=== PATIENT | female | born 1980 | race Caucasian/White ===

== ENCOUNTER 2019-02-11 13:50 | Inpatient (IN) | payer OTHER ==
[2019-02-11 14:54] VITALS: BMI 30.2
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
[2019-02-11] MEDS ORDERED: METHOCARBAMOL 500 MG TABLET PO PRN (15:51)
[2019-02-11] MEDS ORDERED: MAGNESIUM HYDROX 2400MG/30ML ORAL SUSPENSION 30 ML CUP PO PRN (15:51)
[2019-02-11] MEDS ORDERED: chlordiazePOXIDE HCL 10 MG CAPSULE PO PRN (15:51)
[2019-02-11] MEDS ORDERED: MENTHOL/PHENOL 1 EACH UD MM PRN (15:51)
[2019-02-11] MEDS ORDERED: MAGNESIUM CITRATE 300 ML BOTTLE PO PRN (15:51)
[2019-02-11] MEDS ORDERED: ACETAMINOPHEN 325 MG TABLET (FP) PO PRN ×2 (15:51)
[2019-02-11] MEDS ORDERED: hydrOXYzine PAMOATE 25 MG CAPSULE (FP) PO PRN (15:51)
[2019-02-11] MEDS ORDERED: MAG HYDROX/AL HYDROX/SIMETH 30 ML UNIT-DOSE CUP PO PRN (15:51)
[2019-02-11] MEDS ORDERED: IBUPROFEN 400 MG TABLET (FP) PO PRN (15:51)
[2019-02-11] MEDS ORDERED: P-EPHED 60MG/TRIPROLIDI 2.5MG TABLET PO PRN (15:51)
[2019-02-11] MEDS ORDERED: ONDANSETRON *ODT* 4 MG TABLET SL PRN (15:51)
[2019-02-11] MEDS ORDERED: DICYCLOMINE HCL 10 MG CAPSULE PO PRN (15:51)
[2019-02-11] MEDS ORDERED: NICOTINE POLACRILEX 4 MG GUM BUC PRN (15:51)
[2019-02-11] MEDS ORDERED: BISMUTH SUBSALICYLATE 524 MG/30 ML UD PO PRN (15:51)
[2019-02-11] MEDS: THIAMINE HCL 100 MG TABLET (FP) PO SCH (22:05)
[2019-02-11] MEDS: chlordiazePOXIDE HCL 25 MG CAPSULE PO SCH (22:05)
[2019-02-12] MEDS: chlordiazePOXIDE HCL 25 MG CAPSULE PO SCH ×2 (06:15→13:10)
[2019-02-12 10:35] LABS: ALBUMIN 3.2 g/dl (3.4-5.0); ALK PHOS 61 U/L (45-117); ANION GAP 7 MMOL/L (8-16); BILIRUBIN,TOTAL 0.2 mg/dL (0.2-1); BLOOD UREA NITROGEN 20 mg/dL (7-18); CALCIUM 8.2 mg/dL (8.5-10.1); CHLORIDE 104 mmol/L (98-107); CO2 28 mmol/L (21-32); CREATININE 0.9 mg/dL (0.55-1.3); GLUCOSE,RANDOM 107 mg/dL (74-106); POTASSIUM 3.8 mmol/L (3.5-5.1); SGOT/AST 61 U/L (15-37); SGPT/ALT 23 U/L (13-61); SODIUM 140 mmol/L (136-145); TOT PROT 6.3 g/dl (6.4-8.2)
[2019-02-12 10:37] LABS: HEMATOCRIT 34.1 % (32.4-45.2); HEMOGLOBIN 11.4 GM/dL (10.7-15.3); MCH 30.3 pg (25.7-33.7); MCHC 33.5 g/dl (32.0-36.0); MEAN CELL VOLUME 90.6 fl (80-96); MEAN PLT VOLUME 7.7 fl (7.5-11.1); PLATELET COUNT 361 K/MM3 (134-434); RBC 3.76 M/mm3 (3.60-5.2); RDW 15.3 % (11.6-15.6); WHITE BLOOD COUNT 5.9 K/mm3 (4.0-10.0)
[2019-02-12] MEDS: NICOTINE 21 MG/24 HOURS TOPICAL PATCH TD SCH (10:42)
[2019-02-12] MEDS: PRENATAL VITAMINS W/ FOLIC ACID TABLET (FP) PO SCH (10:43)
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
--- NOTE | 2019-02-12 13:09 | EKG ---
Test Reason : Blood Pressure : / mmHG Vent. Rate : 087 BPM Atrial Rate : 087 BPM P-R Int : 116 ms QRS Dur : 084 ms QT Int : 408 ms P-R-T Axes : 055 064 041 degrees QTc Int : 490 ms NORMAL SINUS RHYTHM PROLONGED QT ABNORMAL ECG NO PREVIOUS ECGS AVAILABLE Confirmed by MD HEENA, ARYA ([id number]) on 02/12/2019 1:09:18 PM Referred By: Confirmed By:ARYA NAIK MD
--- NOTE | 2019-02-12 16:22 | PN ---
S CIWA - CIWA Score Nausea/Vomitin-No Nausea/No Vomiting Muscle Tremors: 3 Anxiety: 4-Mod. Anxious/Guarded Agitation: 2 Paroxysmal Sweats: 2 Orientation: 0-Oriented Tacttile Disturbances: 2-Mild Itch/Numbness/Burn Auditory Disturbances: 0-None Visual Disturbances: 2-Mild Sensitivity Headache: 0-None Present CIWA-Ar Total Score: 15 BHS Progress Note (SOAP) Subjective: Anxious, Sweating, Tremors, Fatigue. Objective: PATIENT A & O X 2 (UNCERTAIN ABOUT CURRENT DAY / DATE). PATIENT OBSERVED AMBULATING ON UNIT. IN NO ACUTE DISTRESS. 02/12/19 16:20 Vital Signs Temperature 96.5 F L 02/12/19 14:11 Pulse Rate 83 02/12/19 14:11 Respiratory Rate 18 02/12/19 14:11 Blood Pressure 102/65 02/12/19 14:11 O2 Sat by Pulse Oximetry (%) Laboratory Tests 02/12/19 02/12/19 02/12/19 07:50 07:50 07:50 WBC 5.9 RBC 3.76 Hgb 11.4 Hct 34.1 MCV 90.6 MCH 30.3 MCHC 33.5 RDW 15.3 Plt Count 361 MPV 7.7 Sodium 140 Potassium 3.8 Chloride 104 Carbon Dioxide 28 Anion Gap 7 L BUN 20 H Creatinine 0.9 Creat Clearance w eGFR 70.45 Random Glucose 107 H Calcium 8.2 L Total Bilirubin 0.2 AST 61 H ALT 23 Alkaline Phosphatase 61 Total Protein 6.3 L Albumin 3.2 L RPR Titer HIV 1&2 Antibody Screen Negative HIV P24 Antigen Negative 02/12/19 07:50 WBC RBC Hgb Hct MCV MCH MCHC RDW Plt Count MPV Sodium Potassium Chloride Carbon Dioxide Anion Gap BUN Creatinine Creat Clearance w eGFR Random Glucose Calcium Total Bilirubin AST ALT Alkaline Phosphatase Total Protein Albumin RPR Titer Nonreactive HIV 1&2 Antibody Screen HIV P24 Antigen LABS NOTED. Assessment: 02/12/19 16:21 WITHDRAWAL SYMPTOMS. Plan: CONTINUE DETOX. INCREASE DAILY PO FLUID INTAKE.
[2019-02-12] MEDS: THIAMINE HCL 100 MG TABLET (FP) PO SCH (22:28)
[2019-02-12] MEDS: chlordiazePOXIDE 5 MG CAPSULE PO SCH (22:28)
[2019-02-12] MEDS: risperiDONE 0.5 MG TABLET (FP) PO SCH (22:29)
[2019-02-12] MEDS: MELATONIN 5 MG TABLETS PO PRN (22:30)
[2019-02-13] MEDS: chlordiazePOXIDE 5 MG CAPSULE PO SCH ×2 (05:53→13:56)
[2019-02-13] MEDS: NICOTINE 21 MG/24 HOURS TOPICAL PATCH TD SCH (10:27)
[2019-02-13] MEDS: PRENATAL VITAMINS W/ FOLIC ACID TABLET (FP) PO SCH (10:27)
[2019-02-13] MEDS: risperiDONE 0.5 MG TABLET (FP) PO SCH ×2 (10:27→22:30)
--- NOTE | 2019-02-13 11:48 | PN ---
S CIWA - CIWA Score Nausea/Vomitin-No Nausea/No Vomiting Muscle Tremors: 2 Anxiety: 2 Agitation: 2 Paroxysmal Sweats: 1-Minimal Palms Moist Orientation: 2-Disoriented Date<2 days Tacttile Disturbances: 0-None Auditory Disturbances: 0-None Visual Disturbances: 0-None Headache: 1-Very Mild CIWA-Ar Total Score: 10 S Progress Note (SOAP) Subjective: feeling better less tremor mild sweating sleep better at night Objective: 02/13/19 11:49 Vital Signs Temperature 97.3 F L 02/13/19 09:59 Pulse Rate 96 H 02/13/19 09:59 Respiratory Rate 18 02/13/19 09:59 Blood Pressure 105/69 02/13/19 09:59 O2 Sat by Pulse Oximetry (%) Laboratory Last Values WBC 5.9 K/mm3 (4.0-10.0) 02/12/19 07:50 RBC 3.76 M/mm3 (3.60-5.2) 02/12/19 07:50 Hgb 11.4 GM/dL (10.7-15.3) 02/12/19 07:50 Hct 34.1 % (32.4-45.2) 02/12/19 07:50 MCV 90.6 fl (80-96) 02/12/19 07:50 MCH 30.3 pg (25.7-33.7) 02/12/19 07:50 MCHC 33.5 g/dl (32.0-36.0) 02/12/19 07:50 RDW 15.3 % (11.6-15.6) 02/12/19 07:50 Plt Count 361 K/MM3 (134-434) 02/12/19 07:50 MPV 7.7 fl (7.5-11.1) 02/12/19 07:50 Sodium 140 mmol/L (136-145) 02/12/19 07:50 Potassium 3.8 mmol/L (3.5-5.1) 02/12/19 07:50 Chloride 104 mmol/L (98-107) 02/12/19 07:50 Carbon Dioxide 28 mmol/L (21-32) 02/12/19 07:50 Anion Gap 7 MMOL/L (8-16) L 02/12/19 07:50 BUN 20 mg/dL (7-18) H 02/12/19 07:50 Creatinine 0.9 mg/dL (0.55-1.3) 02/12/19 07:50 Creat Clearance w eGFR 70.45 (>60) 02/12/19 07:50 Random Glucose 107 mg/dL (74-106) H 02/12/19 07:50 Calcium 8.2 mg/dL (8.5-10.1) L 02/12/19 07:50 Total Bilirubin 0.2 mg/dL (0.2-1) 02/12/19 07:50 AST 61 U/L (15-37) H 02/12/19 07:50 ALT 23 U/L (13-61) 02/12/19 07:50 Alkaline Phosphatase 61 U/L (45-117) 02/12/19 07:50 Total Protein 6.3 g/dl (6.4-8.2) L 02/12/19 07:50 Albumin 3.2 g/dl (3.4-5.0) L 02/12/19 07:50 RPR Titer Nonreactive (NONREACTIVE) 02/12/19 07:50 HIV 1&2 Antibody Screen Negative 02/12/19 07:50 HIV P24 Antigen Negative 02/12/19 07:50 lab noted Assessment: 02/13/19 11:49 mild withdrawal sx Plan: continue detox
[2019-02-13] MEDS ORDERED: chlordiazePOXIDE HCL 10 MG CAPSULE PO PRN (21:00)
[2019-02-13] MEDS: THIAMINE HCL 100 MG TABLET (FP) PO SCH (22:30)
[2019-02-13] MEDS: chlordiazePOXIDE HCL 10 MG CAPSULE PO SCH (22:30)
[2019-02-13] MEDS: MELATONIN 5 MG TABLETS PO PRN (22:31)
[2019-02-14] MEDS: chlordiazePOXIDE HCL 10 MG CAPSULE PO SCH ×2 (06:13→13:38)
[2019-02-14 09:14] VITALS: TEMP 97.7
[2019-02-14] MEDS: PRENATAL VITAMINS W/ FOLIC ACID TABLET (FP) PO SCH (10:37)
[2019-02-14] MEDS: NICOTINE 21 MG/24 HOURS TOPICAL PATCH TD SCH (10:37)
[2019-02-14] MEDS: risperiDONE 0.5 MG TABLET (FP) PO SCH (10:37)
[2019-02-14 13:14] VITALS: BP 123/84; PULSE 94
--- NOTE | 2019-02-14 14:38 | DS ---
[facility] Detox Discharge Summary Admission Date: 02/11/19 Discharge Date: 02/14/19 - History Present History: Alcohol Dependence Additional Comments: 38 years old female admitted on 02/11/19 for alcohol withdrawal stabilization completed detox regimen [facility] - Physical Exam Results Vital Signs: Vital Signs Temperature 97.7 F 02/14/19 13:14 Pulse Rate 94 H 02/14/19 13:14 Respiratory Rate 18 02/14/19 13:14 Blood Pressure 123/84 02/14/19 13:14 O2 Sat by Pulse Oximetry (%) Pertinent Admission Physical Exam Findings: alcohol withdrawal sx Laboratory Last Values WBC 5.9 K/mm3 (4.0-10.0) 02/12/19 07:50 RBC 3.76 M/mm3 (3.60-5.2) 02/12/19 07:50 Hgb 11.4 GM/dL (10.7-15.3) 02/12/19 07:50 Hct 34.1 % (32.4-45.2) 02/12/19 07:50 MCV 90.6 fl (80-96) 02/12/19 07:50 MCH 30.3 pg (25.7-33.7) 02/12/19 07:50 MCHC 33.5 g/dl (32.0-36.0) 02/12/19 07:50 RDW 15.3 % (11.6-15.6) 02/12/19 07:50 Plt Count 361 K/MM3 (134-434) 02/12/19 07:50 MPV 7.7 fl (7.5-11.1) 02/12/19 07:50 Sodium 140 mmol/L (136-145) 02/12/19 07:50 Potassium 3.8 mmol/L (3.5-5.1) 02/12/19 07:50 Chloride 104 mmol/L (98-107) 02/12/19 07:50 Carbon Dioxide 28 mmol/L (21-32) 02/12/19 07:50 Anion Gap 7 MMOL/L (8-16) L 02/12/19 07:50 BUN 20 mg/dL (7-18) H 02/12/19 07:50 Creatinine 0.9 mg/dL (0.55-1.3) 02/12/19 07:50 Creat Clearance w eGFR 70.45 (>60) 02/12/19 07:50 Random Glucose 107 mg/dL (74-106) H 02/12/19 07:50 Calcium 8.2 mg/dL (8.5-10.1) L 02/12/19 07:50 Total Bilirubin 0.2 mg/dL (0.2-1) 02/12/19 07:50 AST 61 U/L (15-37) H 02/12/19 07:50 ALT 23 U/L (13-61) 02/12/19 07:50 Alkaline Phosphatase 61 U/L (45-117) 02/12/19 07:50 Total Protein 6.3 g/dl (6.4-8.2) L 02/12/19 07:50 Albumin 3.2 g/dl (3.4-5.0) L 02/12/19 07:50 RPR Titer Nonreactive (NONREACTIVE) 02/12/19 07:50 HIV 1&2 Antibody Screen Negative 02/12/19 07:50 HIV P24 Antigen Negative 02/12/19 07:50 lab noted - Treatment Hospital Course: Detox Protocol Followed, Detoxed Safely, Responded well, Discharged Condition Good, Rehab Referral Accepted Patient has Accepted a [facility] Referral to: [facility] - Medication Discharge Medications: Ambulatory Orders NK [No Known Home Medication] 02/11/19 - Diagnosis (1) Alcohol dependence with uncomplicated withdrawal Current Visit: Yes Status: Acute (2) Nicotine dependence Current Visit: Yes Status: Acute Qualifiers: Nicotine product type: cigarettes Substance use status: in withdrawal Qualified Code(s): F17.213 - Nicotine dependence, cigarettes, with withdrawal (3) Substance induced mood disorder Current Visit: Yes Status: Chronic - AMA Did Patient Leave Against Medical Advice: No
== END 2019-02-14 14:33 | disposition other institution (70) | DRG 774 ==
LOC: YASAS 13:50 → Y3N 17:34
PROVIDERS: ADMIT Surgery; ATTEND Surgery
PROC: HZ2ZZZZ Detoxification Services for Substance Abuse Treatment (ICD-10-PCS; principal; 2019-02-11)
DX: F10.230 Alcohol dependence with withdrawal, uncomplicated (principal); F14.20 Cocaine dependence, uncomplicated; F17.213 Nicotine dependence, cigarettes, with withdrawal; F19.24 Other psychoactive substance dependence with psychoactive substance-induced mood disorder; F22 Delusional disorders; F31.9 Bipolar disorder, unspecified; Z91.19 Patient's noncompliance with other medical treatment and regimen; Z59.0 Homelessness
CPT/HCPCS: 36415; 80053; 85027; 86593; 87389; 93005; 93010

== ENCOUNTER 2019-02-14 14:49 | Inpatient (IN) | payer OTHER ==
--- NOTE | 2019-02-14 14:41 | HP ---
[facility] Re[facility] Assess/Revision - Admission History Admitted to Rehab from: [facility] Date of Admission to Rehab: 02/14/19 - Findings Detox History & Physical reviewed: Yes Concur with findings: Yes Comments/Additional Findings: transferred from detox to rehab admission as per protocol Inpatient Rehab Admission - Rehab Decision to Admit Inpatient rehab admission?: Yes - Initial Determination Are CD services needed?: Yes Free of communicable disease: Yes Not in need of hospitalization: Yes - Rehab Admission Criteria Previous failed treatment: Yes Poor recovery environment: Yes Comorbidities: Yes Lacks judgement: No Patient is meeting Inpatient Rehab admission criteria:: Yes
[~2019-02-14 14:49] MED LIST: ACETAMINOPHEN 325 MG TABLET (FP) PO PRN; IBUPROFEN 400 MG TABLET (FP) PO PRN; LOPERAMIDE HCL 2 MG CAPSULE PO PRN; MAG HYDROX/AL HYDROX/SIMETH 30 ML UNIT-DOSE CUP PO PRN; MAGNESIUM CITRATE 300 ML BOTTLE PO PRN; MAGNESIUM HYDROX 2400MG/30ML ORAL SUSPENSION 30 ML CUP PO PRN; MENTHOL/PHENOL 1 EACH UD MM PRN; NICOTINE 14 MG/24 HOURS TOPICAL PATCH TD PRN; P-EPHED 60MG/TRIPROLIDI 2.5MG TABLET PO PRN; guaiFENesin 200 MG/10 ML 10 ML UNIT-DOSE CUPS PO PRN
[2019-02-14 15:14] VITALS: BMI 31.9
[2019-02-14] MEDS: NICOTINE POLACRILEX 2 MG GUM BC PRN ×2 (19:03→22:01)
[2019-02-14] MEDS ORDERED: MELATONIN 5 MG TABLETS PO PRN (22:00)
[2019-02-14] MEDS: risperiDONE 0.5 MG TABLET (FP) PO SCH (22:01)
[2019-02-14] MEDS: THIAMINE HCL 100 MG TABLET (FP) PO SCH (22:01)
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
[2019-02-15] MEDS: NICOTINE POLACRILEX 2 MG GUM BC PRN ×2 (09:47→14:52)
[2019-02-15] MEDS: PRENATAL VITAMINS W/ FOLIC ACID TABLET (FP) PO SCH (09:47)
[2019-02-15] MEDS: risperiDONE 0.5 MG TABLET (FP) PO SCH ×2 (09:47→21:47)
--- NOTE | 2019-02-15 11:52 | PN ---
[facility] Progress Note Note: Patient requesting change in repiradal. Psych aware of patient request, discussed in AM meeting.
[2019-02-15] MEDS: hydrOXYzine PAMOATE 50 MG CAPSULE (FP) PO PRN ×2 (16:59→21:47)
[2019-02-15] MEDS: THIAMINE HCL 100 MG TABLET (FP) PO SCH (21:45)
[2019-02-16 06:54] VITALS: BP 122/75; PULSE 83; TEMP 97.4
[2019-02-16] MEDS: hydrOXYzine PAMOATE 50 MG CAPSULE (FP) PO PRN (08:37)
[2019-02-16] MEDS: risperiDONE 0.5 MG TABLET (FP) PO SCH (09:16)
[2019-02-16] MEDS: PRENATAL VITAMINS W/ FOLIC ACID TABLET (FP) PO SCH (09:16)
[2019-02-16] MEDS ORDERED: PT OWN MED DRAWER 7, Y5N ONE (09:17)
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
--- NOTE | 2019-02-16 09:42 | PN ---
[facility] Progress Note Note: Patient is signing out against medical advice today. Scripts for 30 days supply of Risperdal 0.5 mg po BID is electronically transmitted to [facility] at [address] [place], [place] [id number]
[2019-02-16] MEDS ORDERED: predniSONE 5 MG TABLET (UD) PO SCH (10:00)
== END 2019-02-16 09:50 | disposition left against medical advice (07) | DRG 770 ==
LOC: YASAS 14:49 → Y3W 14:50
PROVIDERS: ADMIT Neuromusculoskeletal Medicine & OMM; ATTEND Neuromusculoskeletal Medicine & OMM
PROC: HZ42ZZZ Group Counseling for Substance Abuse Treatment, Cognitive-Behavioral (ICD-10-PCS; principal; 2019-02-14)
DX: F10.20 Alcohol dependence, uncomplicated (principal); F14.20 Cocaine dependence, uncomplicated; F11.10 Opioid abuse, uncomplicated; F17.210 Nicotine dependence, cigarettes, uncomplicated; F19.24 Other psychoactive substance dependence with psychoactive substance-induced mood disorder; F19.282 Other psychoactive substance dependence with psychoactive substance-induced sleep disorder; F22 Delusional disorders; Z86.59 Personal history of other mental and behavioral disorders; Z59.0 Homelessness

== ENCOUNTER 2019-03-27 10:04 | Inpatient (IN) | payer OTHER ==
[2019-03-27 11:56] VITALS: BMI 31.6
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
[2019-03-27] MEDS ORDERED: MAGNESIUM HYDROX 2400MG/30ML ORAL SUSPENSION 30 ML CUP PO PRN (15:08)
[2019-03-27] MEDS ORDERED: chlordiazePOXIDE HCL 25 MG CAPSULE PO PRN (15:08)
[2019-03-27] MEDS ORDERED: METHOCARBAMOL 500 MG TABLET PO PRN (15:08)
[2019-03-27] MEDS ORDERED: MENTHOL/PHENOL 1 EACH UD MM PRN (15:08)
[2019-03-27] MEDS ORDERED: IBUPROFEN 400 MG TABLET (FP) PO PRN (15:08)
[2019-03-27] MEDS ORDERED: BISMUTH SUBSALICYLATE 524 MG/30 ML UD PO PRN (15:08)
[2019-03-27] MEDS ORDERED: MAG HYDROX/AL HYDROX/SIMETH 30 ML UNIT-DOSE CUP PO PRN (15:08)
[2019-03-27] MEDS ORDERED: ACETAMINOPHEN 325 MG TABLET (FP) PO PRN ×2 (15:08)
[2019-03-27] MEDS ORDERED: MAGNESIUM CITRATE 300 ML BOTTLE PO PRN (15:08)
[2019-03-27 17:11] LABS: PH,URINE 5.5 (5.0-8.0); URINE APPEARANCE TURBID; URINE BILIRUBIN NEGATIVE (NEGATIVE); URINE COLOR YELLOW; URINE GLUCOSE (UA) NEGATIVE (NEGATIVE); URINE KETONE 1+ (NEGATIVE); URINE LEUK ESTERASE NEGATIVE (NEGATIVE); URINE NITRITE NEGATIVE (NEGATIVE); URINE PROTEIN NEGATIVE (NEGATIVE); URINE UROBILINOGEN 0.2 mg/dL (0.2-1.0)
[2019-03-27] MEDS: chlordiazePOXIDE HCL 25 MG CAPSULE PO SCH ×2 (17:57→23:43)
[2019-03-27] MEDS: THIAMINE HCL 100 MG TABLET (FP) PO SCH (23:43)
[2019-03-27] MEDS: BACITRACIN 0.9 GM PACKET TP SCH (23:43)
[2019-03-28] MEDS: chlordiazePOXIDE HCL 25 MG CAPSULE PO SCH ×4 (05:39→22:25)
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
[2019-03-28 10:22] LABS: HEMATOCRIT 36.3 % (32.4-45.2); HEMOGLOBIN 12.4 GM/dL (10.7-15.3); MCH 30.9 pg (25.7-33.7); MCHC 34.1 g/dl (32.0-36.0); MEAN CELL VOLUME 90.8 fl (80-96); MEAN PLT VOLUME 8.1 fl (7.5-11.1); PLATELET COUNT 288 K/MM3 (134-434); RDW 15.2 % (11.6-15.6); WHITE BLOOD COUNT 5.2 K/mm3 (4.0-10.0)
[2019-03-28 10:23] LABS: ALK PHOS 60 U/L (45-117); ANION GAP 3 MMOL/L (8-16); BILIRUBIN,TOTAL 0.2 mg/dL (0.2-1); BLOOD UREA NITROGEN 23 mg/dL (7-18); CALCIUM 8.4 mg/dL (8.5-10.1); CHLORIDE 108 mmol/L (98-107); CO2 28 mmol/L (21-32); CREATININE 0.8 mg/dL (0.55-1.3); GLUCOSE,RANDOM 98 mg/dL (74-106); POTASSIUM 4.3 mmol/L (3.5-5.1); SGOT/AST 13 U/L (15-37); SGPT/ALT 20 U/L (13-61); SODIUM 138 mmol/L (136-145); TOT PROT 6.2 g/dl (6.4-8.2)
[2019-03-28] MEDS: NICOTINE 21 MG/24 HOURS TOPICAL PATCH TD SCH (10:55)
[2019-03-28] MEDS: PRENATAL VITAMINS W/ FOLIC ACID TABLET (FP) PO SCH (10:55)
[2019-03-28] MEDS: hydrOXYzine PAMOATE 25 MG CAPSULE (FP) PO PRN ×2 (10:56→22:27)
[2019-03-28] MEDS: NICOTINE POLACRILEX 2 MG GUM BC PRN ×2 (10:58→22:35)
[2019-03-28] MEDS: BACITRACIN 0.9 GM PACKET TP SCH ×2 (11:06→22:25)
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
[2019-03-28] MEDS: MELATONIN 5 MG TABLETS PO PRN (22:25)
[2019-03-28] MEDS: THIAMINE HCL 100 MG TABLET (FP) PO SCH (22:25)
[2019-03-29] MEDS: chlordiazePOXIDE HCL 25 MG CAPSULE PO SCH ×2 (05:34→10:37)
[2019-03-29] MEDS: hydrOXYzine PAMOATE 25 MG CAPSULE (FP) PO PRN ×3 (05:38→22:22)
[2019-03-29] MEDS ORDERED: LOPERAMIDE HCL 2 MG CAPSULE PO PRN (10:21)
[2019-03-29] MEDS: NICOTINE 21 MG/24 HOURS TOPICAL PATCH TD SCH (10:33)
[2019-03-29] MEDS: PRENATAL VITAMINS W/ FOLIC ACID TABLET (FP) PO SCH (10:33)
[2019-03-29] MEDS: BACITRACIN 0.9 GM PACKET TP SCH ×2 (10:36→22:20)
--- NOTE | 2019-03-29 11:36 | PN ---
[facility] CIWA - CIWA Score Nausea/Vomitin-No Nausea/No Vomiting Muscle Tremors: 3 Anxiety: 3 Agitation: 3 Paroxysmal Sweats: 2 Orientation: 0-Oriented Tacttile Disturbances: 0-None Auditory Disturbances: 0-None Visual Disturbances: 0-None Headache: 0-None Present CIWA-Ar Total Score: 11 S Progress Note (SOAP) Subjective: anxiety interrupted sleep body aches diarrhea Objective: 03/29/19 11:35 Vital Signs Temperature 97.6 F 03/29/19 10:27 Pulse Rate 76 03/29/19 10:27 Respiratory Rate 20 03/29/19 10:27 Blood Pressure 110/52 L 03/29/19 10:27 O2 Sat by Pulse Oximetry (%) Laboratory Tests 03/27/19 03/28/19 03/28/19 15:57 07:00 07:00 WBC 5.2 RBC 4.00 Hgb 12.4 Hct 36.3 MCV 90.8 MCH 30.9 MCHC 34.1 RDW 15.2 Plt Count 288 D MPV 8.1 Sodium 138 Potassium 4.3 Chloride 108 H Carbon Dioxide 28 Anion Gap 3 L BUN 23 H Creatinine 0.8 Creat Clearance w eGFR 80.71 Random Glucose 98 Calcium 8.4 L Total Bilirubin 0.2 AST 13 L ALT 20 Alkaline Phosphatase 60 Total Protein 6.2 L Albumin 3.0 L Urine Color Yellow Urine Appearance Turbid Urine pH 5.5 Ur Specific [place] 1.033 Urine Protein Negative Urine Glucose (UA) Negative Urine Ketones 1+ H Urine Blood Negative Urine Nitrite Negative Urine Bilirubin Negative Urine Urobilinogen 0.2 Ur Leukocyte Esterase Negative RPR Titer 03/28/19 07:00 WBC RBC Hgb Hct MCV MCH MCHC RDW Plt Count MPV Sodium Potassium Chloride Carbon Dioxide Anion Gap BUN Creatinine Creat Clearance w eGFR Random Glucose Calcium Total Bilirubin AST ALT Alkaline Phosphatase Total Protein Albumin Urine Color Urine Appearance Urine pH Ur Specific [place] Urine Protein Urine Glucose (UA) Urine Ketones Urine Blood Urine Nitrite Urine Bilirubin Urine Urobilinogen Ur Leukocyte Esterase RPR Titer Nonreactive aaox3 ambulating no acute distress Assessment: 03/29/19 11:35 withdrawal sx Plan: continue detox increase fluids imodium prn
[2019-03-29] MEDS: risperiDONE 1 MG TABLET (FP) PO SCH ×2 (14:22→22:20)
[2019-03-29] MEDS ORDERED: chlordiazePOXIDE HCL 10 MG CAPSULE PO PRN (17:00)
[2019-03-29] MEDS: chlordiazePOXIDE HCL 10 MG CAPSULE PO SCH ×2 (17:02→22:20)
[2019-03-29] MEDS: MELATONIN 5 MG TABLETS PO PRN (22:20)
[2019-03-29] MEDS: THIAMINE HCL 100 MG TABLET (FP) PO SCH (22:20)
[2019-03-30] MEDS: chlordiazePOXIDE HCL 10 MG CAPSULE PO SCH ×2 (07:20→10:02)
[2019-03-30] MEDS: hydrOXYzine PAMOATE 25 MG CAPSULE (FP) PO PRN ×2 (07:22→17:47)
[2019-03-30] MEDS: risperiDONE 1 MG TABLET (FP) PO SCH (10:02)
[2019-03-30] MEDS: BACITRACIN 0.9 GM PACKET TP SCH (10:02)
[2019-03-30] MEDS: PRENATAL VITAMINS W/ FOLIC ACID TABLET (FP) PO SCH (10:02)
[2019-03-30] MEDS: NICOTINE 21 MG/24 HOURS TOPICAL PATCH TD SCH (10:04)
--- NOTE | 2019-03-30 11:32 | PN ---
S CIWA - CIWA Score Nausea/Vomitin-No Nausea/No Vomiting Muscle Tremors: 3 Anxiety: 2 Agitation: 2 Paroxysmal Sweats: 2 Orientation: 0-Oriented Tacttile Disturbances: 0-None Auditory Disturbances: 0-None Visual Disturbances: 0-None Headache: 0-None Present CIWA-Ar Total Score: 9 BHS Progress Note (SOAP) Subjective: feeling better sweats interrupted sleep Objective: 03/30/19 11:32 Vital Signs Temperature 97.7 F 03/30/19 09:11 Pulse Rate 97 H 03/30/19 09:11 Respiratory Rate 16 03/30/19 09:11 Blood Pressure 105/60 03/30/19 09:11 O2 Sat by Pulse Oximetry (%) aaox3 ambulating no acute distress Assessment: 03/30/19 11:32 withdrawal sx Plan: continue detox increase fluids
[2019-03-30 17:00] VITALS: BP 100/53; PULSE 111; TEMP 97.8
[2019-03-30] MEDS ORDERED: chlordiazePOXIDE HCL 10 MG CAPSULE PO SCH (17:00)
--- NOTE | 2019-03-30 17:57 | PN ---
[facility] Progress Note Note: Psychiatric nurse practitioner note: Psychiatric consultation ordered for patient requesting risperdal dose. Dr. Herron's note read and appreciated. Risperdal 1mg BID ordered by Dr. Herron on 03/30/19. Patient informed that her risperdal dose is ordered. Psychiatric consultation complete.
--- NOTE | 2019-03-30 19:16 | DS ---
[facility] Detox Discharge Summary Admission Date: 03/27/19 Discharge Date: 03/30/19 - History Present History: Alcohol Dependence, Cannabis Dependence, Cocaine Dependence Pertinent Past History: pt leaving a day early of alcohol detox protocol- pt states she is going to [place] today and needs to leave. d/w pt relapse prevention- says that she will most likely use again. - Physical Exam Results Vital Signs: Vital Signs Temperature 97.8 F 03/30/19 16:59 Pulse Rate 111 H 03/30/19 16:59 Respiratory Rate 18 03/30/19 16:59 Blood Pressure 100/53 L 03/30/19 16:59 O2 Sat by Pulse Oximetry (%) - Treatment Hospital Course: Detox Protocol Followed, Detoxed Safely - Medication Discharge Medications: Ambulatory Orders Risperidone [Risperdal -] 1 mg PO BID 03/27/19 - AMA Did Patient Leave Against Medical Advice: No
== END 2019-03-30 19:24 | disposition home or self-care (01) | DRG 774 ==
LOC: YASAS 10:04 → Y6N 15:08
PROVIDERS: ADMIT Surgery; ATTEND Surgery
PROC: HZ2ZZZZ Detoxification Services for Substance Abuse Treatment (ICD-10-PCS; principal; 2019-03-27)
DX: F10.230 Alcohol dependence with withdrawal, uncomplicated (principal); F14.20 Cocaine dependence, uncomplicated; F12.20 Cannabis dependence, uncomplicated; F17.213 Nicotine dependence, cigarettes, with withdrawal; F19.24 Other psychoactive substance dependence with psychoactive substance-induced mood disorder; F19.282 Other psychoactive substance dependence with psychoactive substance-induced sleep disorder; F31.9 Bipolar disorder, unspecified; M21.932 Unspecified acquired deformity of left forearm; Z98.890 Other specified postprocedural states; Z86.59 Personal history of other mental and behavioral disorders; Z59.0 Homelessness
CPT/HCPCS: 36415; 80053; 81003; 85027; 86593; J2794

== ENCOUNTER 2019-05-03 09:59 | Inpatient (IN) | payer OTHER ==
[2019-05-03 10:29] VITALS: BMI 33.3
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
[2019-05-03] MEDS ORDERED: MAGNESIUM CITRATE 300 ML BOTTLE PO PRN (13:48)
[2019-05-03] MEDS ORDERED: MAG HYDROX/AL HYDROX/SIMETH 30 ML UNIT-DOSE CUP PO PRN (13:48)
[2019-05-03] MEDS ORDERED: ACETAMINOPHEN 325 MG TABLET (FP) PO PRN ×2 (13:48)
[2019-05-03] MEDS ORDERED: NICOTINE POLACRILEX 4 MG GUM BUC PRN (13:48)
[2019-05-03] MEDS ORDERED: ONDANSETRON *ODT* 4 MG TABLET SL PRN (13:48)
[2019-05-03] MEDS ORDERED: METHOCARBAMOL 500 MG TABLET PO PRN (13:48)
[2019-05-03] MEDS ORDERED: IBUPROFEN 400 MG TABLET (FP) PO PRN (13:48)
[2019-05-03] MEDS ORDERED: MENTHOL/PHENOL 1 EACH UD MM PRN (13:48)
[2019-05-03] MEDS ORDERED: BISMUTH SUBSALICYLATE 262 MG/15 ML BTL PO PRN (13:48)
[2019-05-03] MEDS ORDERED: MAGNESIUM HYDROX 2400MG/30ML ORAL SUSPENSION 30 ML CUP PO PRN (13:48)
[2019-05-03] MEDS ORDERED: chlordiazePOXIDE HCL 25 MG CAPSULE PO PRN (13:48)
[2019-05-03] MEDS ORDERED: chlordiazePOXIDE HCL 25 MG CAPSULE PO ONE (14:00)
[2019-05-03] MEDS: chlordiazePOXIDE HCL 25 MG CAPSULE PO SCH ×2 (17:23→22:11)
[2019-05-03 18:25] LABS: HEMATOCRIT 37.9 % (32.4-45.2); HEMOGLOBIN 12.4 GM/dL (10.7-15.3); MCH 29.6 pg (25.7-33.7); MCHC 32.6 g/dl (32.0-36.0); MEAN CELL VOLUME 90.8 fl (80-96); MEAN PLT VOLUME 7.9 fl (7.5-11.1); PLATELET COUNT 385 K/MM3 (134-434); RBC 4.18 M/mm3 (3.60-5.2); RDW 15.8 % (11.6-15.6); WHITE BLOOD COUNT 6.4 K/mm3 (4.0-10.0)
[2019-05-03 19:11] LABS: ALBUMIN 3.6 g/dl (3.4-5.0); BILIRUBIN,TOTAL 0.5 mg/dL (0.2-1); CALCIUM 9.3 mg/dL (8.5-10.1); CREATININE 0.9 mg/dL (0.55-1.3)
[2019-05-03] MEDS: THIAMINE HCL 100 MG TABLET (FP) PO SCH (22:11)
[2019-05-03] MEDS: MELATONIN 5 MG TABLETS PO PRN (22:12)
[2019-05-03] MEDS: hydrOXYzine PAMOATE 25 MG CAPSULE (FP) PO PRN (22:13)
[2019-05-04] MEDS: chlordiazePOXIDE HCL 25 MG CAPSULE PO SCH ×3 (06:54→20:35)
--- NOTE | 2019-05-04 11:08 | PN ---
S CIWA - CIWA Score Nausea/Vomitin-No Nausea/No Vomiting Muscle Tremors: 3 Anxiety: 3 Agitation: 3 Paroxysmal Sweats: 3 Orientation: 0-Oriented Tacttile Disturbances: 0-None Auditory Disturbances: 0-None Visual Disturbances: 0-None Headache: 0-None Present CIWA-Ar Total Score: 12 BHS Progress Note (SOAP) Subjective: sweats shakes interrupted sleep tired body aches irritable Objective: 05/04/19 11:07 Vital Signs Temperature 98.1 F 05/04/19 09:37 Pulse Rate 76 05/04/19 09:37 Respiratory Rate 18 05/04/19 09:37 Blood Pressure 124/82 05/04/19 09:37 O2 Sat by Pulse Oximetry (%) Laboratory Tests 05/03/19 05/03/19 05/03/19 11:46 13:15 13:15 WBC 6.4 RBC 4.18 Hgb 12.4 Hct 37.9 MCV 90.8 MCH 29.6 MCHC 32.6 RDW 15.8 H Plt Count 385 D MPV 7.9 Sodium 138 Potassium 4.0 Chloride 106 Carbon Dioxide 28 Anion Gap 5 L BUN 15 Creatinine 0.9 Est GFR (CKD-EPI)AfAm 94.67 Est GFR (CKD-EPI)NonAf 81.68 Random Glucose 104 Calcium 9.3 Total Bilirubin 0.5 AST 17 ALT 22 Alkaline Phosphatase 73 Total Protein 7.0 Albumin 3.6 POC Urine HCG, Qual Negative RPR Titer 05/03/19 13:15 WBC RBC Hgb Hct MCV MCH MCHC RDW Plt Count MPV Sodium Potassium Chloride Carbon Dioxide Anion Gap BUN Creatinine Est GFR (CKD-EPI)AfAm Est GFR (CKD-EPI)NonAf Random Glucose Calcium Total Bilirubin AST ALT Alkaline Phosphatase Total Protein Albumin POC Urine HCG, Qual RPR Titer Nonreactive labs noted aaox3 ambulating no acute distress Assessment: 05/04/19 11:08 withdrawal sx Plan: continue detox increase fluids pending labs
[2019-05-04] MEDS: PRENATAL VITAMINS W/ FOLIC ACID TABLET (FP) PO SCH (11:15)
[2019-05-04] MEDS: NICOTINE 21 MG/24 HOURS TOPICAL PATCH TD SCH (11:15)
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
[2019-05-04] MEDS: risperiDONE 1 MG TABLET (FP) PO SCH (14:23)
[2019-05-05] MEDS: risperiDONE 1 MG TABLET (FP) PO SCH ×3 (00:17→22:33)
[2019-05-05] MEDS: THIAMINE HCL 100 MG TABLET (FP) PO SCH ×2 (00:17→22:33)
[2019-05-05] MEDS: chlordiazePOXIDE HCL 25 MG CAPSULE PO SCH ×3 (00:17→10:48)
[2019-05-05] MEDS: NICOTINE 21 MG/24 HOURS TOPICAL PATCH TD SCH (10:47)
[2019-05-05] MEDS: PRENATAL VITAMINS W/ FOLIC ACID TABLET (FP) PO SCH (10:48)
[2019-05-05] MEDS: hydrOXYzine PAMOATE 25 MG CAPSULE (FP) PO PRN ×2 (10:50→17:51)
--- NOTE | 2019-05-05 11:44 | PN ---
[facility] CIWA - CIWA Score Nausea/Vomitin-No Nausea/No Vomiting Muscle Tremors: 3 Anxiety: 3 Agitation: 3 Paroxysmal Sweats: 2 Orientation: 0-Oriented Tacttile Disturbances: 0-None Auditory Disturbances: 0-None Visual Disturbances: 0-None Headache: 0-None Present CIWA-Ar Total Score: 11 S Progress Note (SOAP) Subjective: sweats shakes anxiety i want an HIV test. Objective: 05/05/19 11:43 Vital Signs Temperature 97.6 F 05/05/19 09:34 Pulse Rate 80 05/05/19 09:34 Respiratory Rate 18 05/05/19 09:34 Blood Pressure 109/66 05/05/19 09:34 O2 Sat by Pulse Oximetry (%) Laboratory Tests 05/03/19 05/03/19 05/03/19 11:46 13:15 13:15 WBC 6.4 RBC 4.18 Hgb 12.4 Hct 37.9 MCV 90.8 MCH 29.6 MCHC 32.6 RDW 15.8 H Plt Count 385 D MPV 7.9 Sodium 138 Potassium 4.0 Chloride 106 Carbon Dioxide 28 Anion Gap 5 L BUN 15 Creatinine 0.9 Est GFR (CKD-EPI)AfAm 94.67 Est GFR (CKD-EPI)NonAf 81.68 Random Glucose 104 Calcium 9.3 Total Bilirubin 0.5 AST 17 ALT 22 Alkaline Phosphatase 73 Total Protein 7.0 Albumin 3.6 POC Urine HCG, Qual Negative RPR Titer 05/03/19 13:15 WBC RBC Hgb Hct MCV MCH MCHC RDW Plt Count MPV Sodium Potassium Chloride Carbon Dioxide Anion Gap BUN Creatinine Est GFR (CKD-EPI)AfAm Est GFR (CKD-EPI)NonAf Random Glucose Calcium Total Bilirubin AST ALT Alkaline Phosphatase Total Protein Albumin POC Urine HCG, Qual RPR Titer Nonreactive labs noted aaox3 ambulating no acute distress 05/05/19 11:44 Assessment: 05/05/19 11:43 withdrawal sx Plan: continue detox increase fluids HIV test ordered as per pt request
[2019-05-05] MEDS: chlordiazePOXIDE HCL 10 MG CAPSULE PO SCH ×2 (17:51→22:33)
[2019-05-05] MEDS: MELATONIN 5 MG TABLETS PO PRN (22:33)
[2019-05-06] MEDS: chlordiazePOXIDE HCL 10 MG CAPSULE PO SCH ×2 (06:39→10:26)
[2019-05-06 09:31] VITALS: BP 123/80; PULSE 103; TEMP 97.8
[2019-05-06] MEDS: risperiDONE 1 MG TABLET (FP) PO SCH (10:26)
[2019-05-06] MEDS: NICOTINE 21 MG/24 HOURS TOPICAL PATCH TD SCH (10:26)
[2019-05-06] MEDS: PRENATAL VITAMINS W/ FOLIC ACID TABLET (FP) PO SCH (10:26)
[2019-05-06] MEDS: hydrOXYzine PAMOATE 25 MG CAPSULE (FP) PO PRN (10:28)
--- NOTE | 2019-05-06 11:20 | PN ---
BHS Progress Note Note: is feeling fine. no withdrawals noted. pt has an opportunity to go to [facility] inpatient rehab and will be p/u today for continued care.
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
[2019-05-06] MEDS ORDERED: chlordiazePOXIDE HCL 10 MG CAPSULE PO SCH (17:00)
== END 2019-05-06 11:58 | disposition home or self-care (01) | DRG 774 ==
LOC: YASAS 09:59 → Y6N 13:13
PROVIDERS: ADMIT Surgery; ATTEND Surgery
PROC: HZ2ZZZZ Detoxification Services for Substance Abuse Treatment (ICD-10-PCS; principal; 2019-05-03)
DX: F10.230 Alcohol dependence with withdrawal, uncomplicated (principal); F14.20 Cocaine dependence, uncomplicated; F17.210 Nicotine dependence, cigarettes, uncomplicated; F19.282 Other psychoactive substance dependence with psychoactive substance-induced sleep disorder; F19.24 Other psychoactive substance dependence with psychoactive substance-induced mood disorder; F31.9 Bipolar disorder, unspecified; K21.9 Gastro-esophageal reflux disease without esophagitis; M21.932 Unspecified acquired deformity of left forearm; Z87.828 Personal history of other (healed) physical injury and trauma; Z86.19 Personal history of other infectious and parasitic diseases; Z59.0 Homelessness
CPT/HCPCS: 36415; 80053; 81025; 85027; 86593; 87389; J2794

== ENCOUNTER 2020-06-12 12:14 | Inpatient (IN) | payer OTHER ==
[~2020-06-12 12:14] MED LIST changes: -ACETAMINOPHEN 325 MG TABLET (FP) PO PRN; -IBUPROFEN 400 MG TABLET (FP) PO PRN; -LOPERAMIDE HCL 2 MG CAPSULE PO PRN; -MAG HYDROX/AL HYDROX/SIMETH 30 ML UNIT-DOSE CUP PO PRN; -MAGNESIUM CITRATE 300 ML BOTTLE PO PRN; -MAGNESIUM HYDROX 2400MG/30ML ORAL SUSPENSION 30 ML CUP PO PRN; -MENTHOL/PHENOL 1 EACH UD MM PRN; -NICOTINE 14 MG/24 HOURS TOPICAL PATCH TD PRN; -P-EPHED 60MG/TRIPROLIDI 2.5MG TABLET PO PRN; +chlordiazePOXIDE HCL 25 MG CAPSULE PO SCH; -guaiFENesin 200 MG/10 ML 10 ML UNIT-DOSE CUPS PO PRN
--- NOTE | 2020-06-12 12:44 | BHS.RME ---
Substance Use & Tx History - Substance Use History Alcohol Substance amount: 4 beers and 1 pint vodka Frequency of use: Daily Substance route: Oral Date of Last Use: 06/12/20 Heroin Substance amount: 2 bags Frequency of use: Daily Substance route: Inhalation (ex: sniffing or snorting) Date of Last Use: 06/12/20 Cocaine-Crack Substance amount: $300-400 Frequency of use: Daily Substance route: Smoking Date of Last Use: 06/12/20 Marijuana/Hashish Substance amount: $10 Frequency of use: Daily Substance route: Smoking Date of Last Use: 06/12/20 Nicotine Substance amount: 1/2 pack Frequency of use: Daily Substance route: Smoking Date of Last Use: 06/12/20 Physical/Psych/Mental Status - Behavior General Behavior: Increased activity (restlessness, agitation) Eye Contact: Normal - Cooperativeness Cooperativeness: Cooperative - Thinking Thought Processes: Tight, Logical, Goal Directed - Physical Health Problems Is patient presently having any pain?: No Does patient presently have any injuries (include location): No Does patient currently have a fever: No Is patient : No CIWA Nausea/Vomitin-Mild Nausea/No Vomiting Muscle Tremors: 3 Anxiety: 2 Agitation: 2 Paroxysmal Sweats: 1-Minimal Palms Moist Orientation: 0-Oriented Tacttile Disturbances: 0-None Auditory Disturbances: 0-None Visual Disturbances: 0-None Headache: 2-Mild CIWA-Ar Total Score: 11
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
[2020-06-12] MEDS ORDERED: BISMUTH SUBSALICYLATE 524 MG/30 ML UD PO PRN (13:26)
[2020-06-12] MEDS ORDERED: chlordiazePOXIDE HCL 25 MG CAPSULE PO PRN (13:26)
[2020-06-12] MEDS ORDERED: NICOTINE POLACRILEX 2 MG GUM BUC PRN (13:26)
[2020-06-12] MEDS ORDERED: MAGNESIUM HYDROX 2400MG/30ML ORAL SUSPENSION 30 ML CUP PO PRN (13:26)
[2020-06-12] MEDS ORDERED: ACETAMINOPHEN 325 MG TABLET (FP) PO PRN ×2 (13:26)
[2020-06-12] MEDS ORDERED: MAGNESIUM CITRATE 300 ML BOTTLE PO PRN (13:26)
[2020-06-12] MEDS ORDERED: MENTHOL/PHENOL 1 EACH UD MM PRN (13:26)
[2020-06-12] MEDS ORDERED: METHOCARBAMOL 500 MG TABLET PO PRN (13:26)
[2020-06-12] MEDS ORDERED: IBUPROFEN 400 MG TABLET (FP) PO PRN (13:26)
[2020-06-12] MEDS ORDERED: ONDANSETRON *ODT* 4 MG TABLET SL ONE (13:26)
[2020-06-12] MEDS ORDERED: MAG HYDROX/AL HYDROX/SIMETH 30 ML UNIT-DOSE CUP PO PRN (13:26)
[2020-06-12 13:56] VITALS: BMI 34.6
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
[2020-06-12] MEDS: NICOTINE 7 MG/24 HOURS TOPICAL PATCH TD SCH (15:33)
[2020-06-12] MEDS: PRENATAL VITAMINS W/ FOLIC ACID TABLET (FP) PO SCH (15:37)
[2020-06-12] MEDS: hydrOXYzine PAMOATE 25 MG CAPSULE (FP) PO SCH ×3 (15:37→22:08)
[2020-06-12] MEDS ORDERED: hydrOXYzine PAMOATE 50 MG CAPSULE (FP) PO PRN (15:52)
[2020-06-12 16:49] LABS: HEMATOCRIT 37.4 % (32.4-45.2); HEMOGLOBIN 12.5 GM/dL (10.7-15.3); MCH 28.6 pg (25.7-33.7); MCHC 33.4 g/dl (32.0-36.0); MEAN CELL VOLUME 85.6 fl (80-96); MEAN PLT VOLUME 8.1 fl (7.5-11.1); PLATELET COUNT 464 K/MM3 (134-434); RBC 4.37 M/mm3 (3.60-5.2); RDW 17.6 % (11.6-15.6); WHITE BLOOD COUNT 10.5 K/mm3 (4.0-10.0)
[2020-06-12 17:03] LABS: BILIRUBIN,TOTAL 0.6 mg/dL (0.2-1); BLOOD UREA NITROGEN 9.6 mg/dL (7-18); CALCIUM 9.1 mg/dL (8.5-10.1); CREATININE 0.9 mg/dL (0.55-1.3); POTASSIUM 3.7 mmol/L (3.5-5.1); TOT PROT 7.8 g/dl (6.4-8.2)
[2020-06-12] MEDS: chlordiazePOXIDE HCL 25 MG CAPSULE PO SCH ×2 (17:54→22:08)
[2020-06-12] MEDS: MELATONIN 5 MG TABLETS PO SCH (22:08)
[2020-06-12] MEDS: THIAMINE HCL 100 MG TABLET (FP) PO SCH (22:08)
[2020-06-12] MEDS: risperiDONE 1 MG TABLET PO SCH (22:08)
[2020-06-13] MEDS: hydrOXYzine PAMOATE 25 MG CAPSULE (FP) PO SCH ×5 (06:19→22:15)
[2020-06-13] MEDS: chlordiazePOXIDE HCL 25 MG CAPSULE PO SCH ×4 (06:19→22:15)
[2020-06-13] MEDS: PRENATAL VITAMINS W/ FOLIC ACID TABLET (FP) PO SCH (10:25)
[2020-06-13] MEDS: NICOTINE 7 MG/24 HOURS TOPICAL PATCH TD SCH (10:25)
[2020-06-13] MEDS: FLUoxetine HCL 20 MG CAPSULE PO SCH (10:25)
[2020-06-13] MEDS: risperiDONE 1 MG TABLET PO SCH ×2 (10:25→22:15)
--- NOTE | 2020-06-13 14:21 | PN ---
S CIWA - CIWA Score Nausea/Vomitin-Mild Nausea/No Vomiting Muscle Tremors: 3 Anxiety: 2 Agitation: 2 Paroxysmal Sweats: No Perspiration Orientation: 0-Oriented Tacttile Disturbances: 1-Very Mild Itch/Numbness Auditory Disturbances: 0-None Visual Disturbances: 0-None Headache: 2-Mild CIWA-Ar Total Score: 11 S Progress Note (SOAP) Subjective: alert,irritable,anxious,interrupted sleep,pain in the body and back,tremor,[place]isa [place] Objective: 06/13/20 14:18 Vital Signs Temperature 96.6 F L 06/13/20 08:55 Pulse Rate 93 H 06/13/20 08:55 Respiratory Rate 19 06/13/20 08:55 Blood Pressure 113/70 06/13/20 08:55 O2 Sat by Pulse Oximetry (%) 95 06/13/20 08:55 Laboratory Last Values WBC 10.5 K/mm3 (4.0-10.0) H 06/12/20 13:25 RBC 4.37 M/mm3 (3.60-5.2) 06/12/20 13:25 Hgb 12.5 GM/dL (10.7-15.3) 06/12/20 13:25 Hct 37.4 % (32.4-45.2) D 06/12/20 13:25 MCV 85.6 fl (80-96) 06/12/20 13:25 MCH 28.6 pg (25.7-33.7) 06/12/20 13:25 MCHC 33.4 g/dl (32.0-36.0) 06/12/20 13:25 RDW 17.6 % (11.6-15.6) H 06/12/20 13:25 Plt Count 464 K/MM3 (134-434) H D 06/12/20 13:25 MPV 8.1 fl (7.5-11.1) 06/12/20 13:25 Sodium 138 mmol/L (136-145) 06/12/20 13:25 Potassium 3.7 mmol/L (3.5-5.1) 06/12/20 13:25 Chloride 106 mmol/L (98-107) 06/12/20 13:25 Carbon Dioxide 23 mmol/L (21-32) 06/12/20 13:25 Anion Gap 9 MMOL/L (8-16) 06/12/20 13:25 BUN 9.6 mg/dL (7-18) 06/12/20 13:25 Creatinine 0.9 mg/dL (0.55-1.3) 06/12/20 13:25 Est GFR (CKD-EPI)AfAm 94.01 06/12/20 13:25 Est GFR (CKD-EPI)NonAf 81.11 06/12/20 13:25 Random Glucose 92 mg/dL (74-106) 06/12/20 13:25 Calcium 9.1 mg/dL (8.5-10.1) 06/12/20 13:25 Total Bilirubin 0.6 mg/dL (0.2-1) 06/12/20 13:25 AST 14 U/L (15-37) L 06/12/20 13:25 ALT 22 U/L (13-61) 06/12/20 13:25 Alkaline Phosphatase 72 U/L (45-117) 06/12/20 13:25 Total Protein 7.8 g/dl (6.4-8.2) 06/12/20 13:25 Albumin 4.0 g/dl (3.4-5.0) 06/12/20 13:25 POC Urine HCG, Qual Negative 06/12/20 13:35 Syphilis Serology Non-reactive (NONREACTIVE) 06/12/20 13:25 COVID-19 (JAME) Not detected (Not Detected) 06/12/20 15:00 HIV Ag/Ab Combo Qual Negative (NEGATIVE) 06/12/20 13:25 Assessment: 06/13/20 14:20 withdrawal symptom Plan: continue detox librium regimen,encourage fluid,repeat cbc in am,intial cbc wbc 10,500,
[2020-06-13] MEDS: THIAMINE HCL 100 MG TABLET (FP) PO SCH (22:16)
[2020-06-13] MEDS: MELATONIN 5 MG TABLETS PO SCH (22:16)
[2020-06-14] MEDS: chlordiazePOXIDE HCL 25 MG CAPSULE PO SCH ×3 (06:47→18:48)
[2020-06-14] MEDS: hydrOXYzine PAMOATE 25 MG CAPSULE (FP) PO SCH (06:47)
[2020-06-14] MEDS: PRENATAL VITAMINS W/ FOLIC ACID TABLET (FP) PO SCH (10:20)
[2020-06-14] MEDS: NICOTINE 7 MG/24 HOURS TOPICAL PATCH TD SCH (10:20)
[2020-06-14] MEDS: risperiDONE 1 MG TABLET PO SCH (10:21)
[2020-06-14] MEDS: FLUoxetine HCL 20 MG CAPSULE PO SCH (10:21)
--- NOTE | 2020-06-14 11:19 | PN ---
S CIWA - CIWA Score Nausea/Vomitin-No Nausea/No Vomiting Muscle Tremors: 2 Anxiety: 2 Agitation: 3 Paroxysmal Sweats: 2 Orientation: 0-Oriented Tacttile Disturbances: 0-None Auditory Disturbances: 0-None Visual Disturbances: 0-None Headache: 0-None Present CIWA-Ar Total Score: 9 BHS Progress Note (SOAP) Subjective: sweats shakes restless chills Objective: 06/14/20 11:17 Vital Signs Temperature 97.3 F L 06/14/20 08:56 Pulse Rate 77 06/14/20 08:56 Respiratory Rate 18 06/14/20 08:56 Blood Pressure 102/62 06/14/20 08:56 O2 Sat by Pulse Oximetry (%) 95 06/14/20 05:45 Laboratory Tests 06/12/20 06/12/20 06/12/20 13:25 13:25 13:25 WBC 10.5 H RBC 4.37 Hgb 12.5 Hct 37.4 D MCV 85.6 MCH 28.6 MCHC 33.4 RDW 17.6 H Plt Count 464 H D MPV 8.1 Sodium 138 Potassium 3.7 Chloride 106 Carbon Dioxide 23 Anion Gap 9 BUN 9.6 Creatinine 0.9 Est GFR (CKD-EPI)AfAm 94.01 Est GFR (CKD-EPI)NonAf 81.11 Random Glucose 92 Calcium 9.1 Total Bilirubin 0.6 AST 14 L ALT 22 Alkaline Phosphatase 72 Total Protein 7.8 Albumin 4.0 POC Urine HCG, Qual Syphilis Serology Non-reactive COVID-19 (JAME) HIV Ag/Ab Combo Qual 06/12/20 06/12/20 06/12/20 13:25 13:35 15:00 WBC RBC Hgb Hct MCV MCH MCHC RDW Plt Count MPV Sodium Potassium Chloride Carbon Dioxide Anion Gap BUN Creatinine Est GFR (CKD-EPI)AfAm Est GFR (CKD-EPI)NonAf Random Glucose Calcium Total Bilirubin AST ALT Alkaline Phosphatase Total Protein Albumin POC Urine HCG, Qual Negative Syphilis Serology COVID-19 (JAME) Not detected HIV Ag/Ab Combo Qual Negative labs noted elevated WBC; repeated CBC aaox3 lying in bed no acute distress Assessment: 06/14/20 11:18 withdrawals Plan: continue detox increase fluids wbc ordered
[2020-06-14 13:59] VITALS: TEMP 97.1
[2020-06-14 17:43] VITALS: BP 114/65; PULSE 89
--- NOTE | 2020-06-14 17:44 | DS ---
[facility] Detox Discharge Summary Admission Date: 06/12/20 Discharge Date: 06/14/20 - History Additional Comments: Patient is leaving against medical advice and as seen at bedside. She is unable to disclose the reason for her abrupt decision stating, "It's my business". Risks and consequences of her actions reinforced and she verbalized understanding of instructions. Patient is not actively withdrawing at this time, she is alert and oriented x 3, in no acute distress, vitals stable and she ambulates without difficulties. Pertinent Past History: Alcohol dependence Methamphetamine dependence Cocaine dependence Nicotine dependence Bipolar disorder Schizo-affective disorder GERD Bronchial asthma Substance induced sleep disorder Substance induced mood disorder - Physical Exam Results Vital Signs: Vital Signs Temperature 97.1 F L 06/14/20 12:22 Pulse Rate 80 06/14/20 12:22 Respiratory Rate 19 06/14/20 12:22 Blood Pressure 123/64 06/14/20 12:22 O2 Sat by Pulse Oximetry (%) 100 06/14/20 12:22 Laboratory Last Values WBC 10.5 K/mm3 (4.0-10.0) H 06/12/20 13:25 RBC 4.37 M/mm3 (3.60-5.2) 06/12/20 13:25 Hgb 12.5 GM/dL (10.7-15.3) 06/12/20 13:25 Hct 37.4 % (32.4-45.2) D 06/12/20 13:25 MCV 85.6 fl (80-96) 06/12/20 13:25 MCH 28.6 pg (25.7-33.7) 06/12/20 13:25 MCHC 33.4 g/dl (32.0-36.0) 06/12/20 13:25 RDW 17.6 % (11.6-15.6) H 06/12/20 13:25 Plt Count 464 K/MM3 (134-434) H D 06/12/20 13:25 MPV 8.1 fl (7.5-11.1) 06/12/20 13:25 Sodium 138 mmol/L (136-145) 06/12/20 13:25 Potassium 3.7 mmol/L (3.5-5.1) 06/12/20 13:25 Chloride 106 mmol/L (98-107) 06/12/20 13:25 Carbon Dioxide 23 mmol/L (21-32) 06/12/20 13:25 Anion Gap 9 MMOL/L (8-16) 06/12/20 13:25 BUN 9.6 mg/dL (7-18) 06/12/20 13:25 Creatinine 0.9 mg/dL (0.55-1.3) 06/12/20 13:25 Est GFR (CKD-EPI)AfAm 94.01 06/12/20 13:25 Est GFR (CKD-EPI)NonAf 81.11 06/12/20 13:25 Random Glucose 92 mg/dL (74-106) 06/12/20 13:25 Calcium 9.1 mg/dL (8.5-10.1) 06/12/20 13:25 Total Bilirubin 0.6 mg/dL (0.2-1) 06/12/20 13:25 AST 14 U/L (15-37) L 06/12/20 13:25 ALT 22 U/L (13-61) 06/12/20 13:25 Alkaline Phosphatase 72 U/L (45-117) 06/12/20 13:25 Total Protein 7.8 g/dl (6.4-8.2) 06/12/20 13:25 Albumin 4.0 g/dl (3.4-5.0) 06/12/20 13:25 POC Urine HCG, Qual Negative 06/12/20 13:35 Syphilis Serology Non-reactive (NONREACTIVE) 06/12/20 13:25 COVID-19 (JAME) Not detected (Not Detected) 06/12/20 15:00 HIV Ag/Ab Combo Qual Negative (NEGATIVE) 06/12/20 13:25 Pertinent Admission Physical Exam Findings: Alcohol withdrawal symptoms - Medication Discharge Medications: Ambulatory Orders Bupropion HCl [Wellbutrin Xl] 300 mg PO DAILY 06/12/20 Risperidone 2 mg PO BID 06/12/20 hydrOXYzine PAMOATE [Vistaril -] 25 mg PO TID PRN 06/12/20 - Diagnosis (1) Cannabis dependence Current Visit: Yes Status: Chronic (2) Substance induced mood disorder Current Visit: Yes Status: Chronic (3) Substance-induced sleep disorder Current Visit: Yes Status: Chronic (4) Alcohol dependence with uncomplicated withdrawal Current Visit: Yes Status: Chronic (5) Bronchial asthma Current Visit: Yes Status: Chronic (6) Cocaine dependence Current Visit: Yes Status: Chronic Qualifiers: Substance use status: uncomplicated Qualified Code(s): F14.20 - Cocaine dependence, uncomplicated (7) GERD (gastroesophageal reflux disease) Current Visit: Yes Status: Chronic Qualifiers: Esophagitis presence: without esophagitis Qualified Code(s): K21.9 - Gastro-esophageal reflux disease without esophagitis (8) Methamphetamine dependence Current Visit: Yes Status: Chronic (9) Nicotine dependence Current Visit: Yes Status: Chronic Qualifiers: Nicotine product type: cigarettes Substance use status: uncomplicated Qualified Code(s): F17.210 - Nicotine dependence, cigarettes, uncomplicated (10) Schizoaffective disorder Current Visit: Yes Status: Chronic - AMA Did Patient Leave Against Medical Advice: Yes
[2020-06-15] MEDS ORDERED: chlordiazePOXIDE HCL 10 MG CAPSULE PO PRN
[2020-06-15] MEDS ORDERED: chlordiazePOXIDE HCL 10 MG CAPSULE PO SCH (05:00)
[2020-06-16] MEDS ORDERED: chlordiazePOXIDE HCL 10 MG CAPSULE PO SCH (05:00)
[2020-06-17] MEDS ORDERED: chlordiazePOXIDE HCL 10 MG CAPSULE PO ONE (05:00)
== END 2020-06-14 18:02 | disposition left against medical advice (07) | DRG 770 ==
LOC: YASAS 12:14 → Y6N 14:33
PROVIDERS: ADMIT Allergy & Immunology; ATTEND Allergy & Immunology
PROC: HZ2ZZZZ Detoxification Services for Substance Abuse Treatment (ICD-10-PCS; principal; 2020-06-12)
DX: F10.230 Alcohol dependence with withdrawal, uncomplicated (principal); F14.20 Cocaine dependence, uncomplicated; F15.20 Other stimulant dependence, uncomplicated; F12.20 Cannabis dependence, uncomplicated; F17.210 Nicotine dependence, cigarettes, uncomplicated; F25.9 Schizoaffective disorder, unspecified; F19.282 Other psychoactive substance dependence with psychoactive substance-induced sleep disorder; F19.24 Other psychoactive substance dependence with psychoactive substance-induced mood disorder; F31.9 Bipolar disorder, unspecified; K21.9 Gastro-esophageal reflux disease without esophagitis; J45.909 Unspecified asthma, uncomplicated; Z87.828 Personal history of other (healed) physical injury and trauma; Z99.89 Dependence on other enabling machines and devices; Z56.0 Unemployment, unspecified; Z59.0 Homelessness
CPT/HCPCS: 36415; 80053; 81025; 85027; 86780; 87389; J2794; Q0162; U0003